=== PATIENT | male | born 1970 | race Hispanic/Latino ===

== ENCOUNTER 2018-08-06 06:37 | Emergency (ER) | payer OTHER ==
[2018-08-06 06:49] VITALS: BMI 29.6
[2018-08-06] MEDS ORDERED: Sodium Chloride 0.9% 1,000 ML IV STA (07:33)
[2018-08-06] MEDS ORDERED: Sucralfate 1 gm/10 ml Oral Susp UD PO ONE (07:34)
[2018-08-06] MEDS ORDERED: Sucralfate 1 gm/10 ml Oral Susp UD ONE (07:53)
--- NOTE | 2018-08-06 08:21 | ED PDOC ---
HPI: Abdomen Time Seen by Provider: 08/06/18 07:07 Chief Complaint (Nursing): Abdominal Pain Chief Complaint (Provider): Abdominal Pain History Per: Patient History/Exam Limitations: no limitations Onset/Duration Of Symptoms: Days (x1) Outside of [place] travel?: No Current Symptoms Are (Timing): Still Present Pain Scale Rating Of: 6 Quality Of Discomfort: "Pain" Associated Symptoms: Vomiting (x 8 episodes per day ). denies: Fever, Diarrhea Additional Complaint(s): 47 y/o male with no significant PMHx presents to the ED for evaluation of abdominal pain, onset 11pm last night. Patient states pain is associated with 8 episodes of vomiting. Patient reports pain is located in the epigastric region radiating to the back. Patient describes pain as a 6/10. Patient states he was at a friends home where he ate a heavy meal and drank a small amount of alcohol when symptoms began. Patient reports no one else had gotten sick. Prior to arrival, patient admits to taking Lorazepam from his . Otherwise, patient denies diarrhea, fever and chills. PMD: Dr. Griselda Lee Past Medical History Reviewed: Historical Data, Nursing Documentation, Vital Signs Vital Signs: Last Vital Signs Temp 97.3 F L 08/06/18 06:56 Pulse 51 L 08/06/18 06:56 Resp 18 08/06/18 06:56 BP 132/85 08/06/18 06:56 Pulse Ox 98 08/06/18 06:56 - Medical History PMH: No Chronic Diseases - Surgical History Surgical History: No Surg Hx - Family History Family History: States: Unknown Family Hx - Living Arrangements Living Arrangements: With Family - Social History Current smoker - smoking cessation education provided: No - Home Medications Home Medications: Ambulatory Orders Medication Instructions Recorded Famotidine [Pepcid] 20 mg PO BID #28 tab 08/06/18 Ondansetron [Zofran] 4 mg PO Q8H #9 tab 08/06/18 - Allergies Allergies/Adverse Reactions: Allergies Allergy/AdvReac Type Severity Reaction Status Date / Time No Known Allergies Allergy Verified 08/06/18 06:49 Review of Systems ROS Statement: Except As Marked, All Systems Reviewed And Found Negative Constitutional: Negative for: Fever, Chills Gastrointestinal: Positive for: Vomiting, Abdominal Pain. Negative for: Diarrhea Musculoskeletal: Positive for: Back Pain Physical Exam - Reviewed Nursing Documentation Reviewed: Yes Vital Signs Reviewed: Yes - Physical Exam Appears: Positive for: No Acute Distress Head Exam: Positive for: ATRAUMATIC, NORMAL INSPECTION, NORMOCEPHALIC Skin: Positive for: Normal Color, Warm, Dry Eye Exam: Positive for: EOMI, PERRL, Other (anicteric) ENT: Positive for: Normal ENT Inspection, Other (Moist Mucous Membranes) Neck: Positive for: Normal, Painless ROM, Supple Cardiovascular/Chest: Positive for: Regular Rate, Rhythm. Negative for: Murmur Respiratory: Positive for: Normal Breath Sounds. Negative for: Respiratory Distress Gastrointestinal/Abdominal: Positive for: Bowel Sounds, Soft, Tenderness (epigastric tenderness) Neurologic/Psych: Positive for: Alert, Oriented (x3) - Laboratory Results Result Diagrams: 08/06/18 08:20 08/06/18 08:20 - ECG O2 Sat by Pulse Oximetry: 98 (RA) Pulse Ox Interpretation: Normal - Progress Re-evaluation Time: 09:10 Condition: Re-examined, Improved Medical Decision Making Medical Decision Making: Time: 7:33 Plan: -EKG -CMP -Lipase Stat -ED Urine Dipstick -CBC w/ differential -Carafate Oral Susp -sodium Chloride IV 999mls/hr -Pepcid 20mg IVP -Zofran 4mg IVP Scribe Attestation: Documented by Bekah Godfrey, acting as a scribe for Dr. Yuki Rodriguez Provider Scribe Attestation: All medical record entries made by the Scribe were at my direction and personally dictated by me. I have reviewed the chart and agree that the record accurately reflects my personal performance of the history, physical exam, medical decision making, and the department course for this patient. I have also personally directed, reviewed, and agree with the discharge instructions and disposition. Disposition - Clinical Impression Clinical Impression: Gastritis - Patient ED Disposition Is Patient to be Admitted: No Doctor Will See Patient In The: Office Counseled Patient/Family Regarding: Diagnosis, Need For Followup, Rx Given - Disposition Disposition: Routine/Home Disposition Time: 09:10 Condition: IMPROVED Prescriptions: Famotidine [Pepcid] 20 mg PO BID #28 tab Ondansetron [Zofran] 4 mg PO Q8H #9 tab Instructions: Gastritis Forms: [facility] (American) - POA Present On Arrival: None
[2018-08-06 08:33] LABS: BASO % 0.2 % (0.0-2.0); EOS % 0.1 % (0.0-4.0); HEMOGLOBIN 15.6 g/dL (12.0-18.0); LYMPH # 0.6 K/uL (1.0-4.3); LYMPH % 8.7 % (20.0-40.0); MEAN CELL VOLUME 91.7 fl (80.0-94.0); MEAN CORPUSCULAR HEMOGLOBIN 30.4 pg (27.0-31.0); MEAN CORPUSCULAR HGB CONC 33.1 g/dL (33.0-37.0); MEAN PLATELET VOLUME 7.8 fl (7.2-11.7); MONO # 0.3 K/uL (0.0-0.8); MONO % 3.8 % (0.0-10.0); NEUT # 6.1 K/uL (1.8-7.0); NEUT % 87.2 % (50.0-75.0); NRBC % 0.1 % (0.0-0.0); PLATELET COUNT 165 K/uL (130-400); RBC 5.13 Mil/uL (4.40-5.90); RED CELL DISTRIBUTION WIDTH 13.9 % (11.5-14.5)
[2018-08-06 08:43] LABS: ALB/GLOB RATIO 1.4 (1.0-2.1); ALBUMIN 4.2 g/dL (3.5-5.0); ALT/SGPT 75 U/L (21-72); AST/SGOT 42 U/L (17-59); BLOOD UREA NITROGEN 17 mg/dl (9-20); GFR NON-AFRICAN AMERICAN > 60; LIPASE 115 U/L (23-300)
[2018-08-06 10:02] LABS: LYMPHOCYTE 10 % (20-50); MONOCYTE 4 % (0-10); NEUTROPHIL 86 % (42-75); TOTAL CELLS COUNTED 100
[2018-08-06 10:03] LABS: PLATELET ESTIMATE NORMAL (NORMAL)
[2018-08-06 10:05] VITALS: BP 126/82; PULSE 66; RESP 17; TEMP 98.1; O2SAT 100
--- NOTE | 2018-08-06 18:55 | CARD ---
APPROVED REPORT Date of service: 08/06/2018 EKG Measurement Heart [id number] <Conclusion> Sinus bradycardia Otherwise normal ECG
== END 2018-08-06 10:04 | disposition home or self-care (01) ==
LOC: H.ER 06:37
DX: K29.70 Gastritis, unspecified, without bleeding (principal)
CPT/HCPCS: 80053; 83690; 85025; 93005; 96361; 96374; 96375; 99283; J2405; J7030

== ENCOUNTER 2018-12-10 00:33 | Emergency (ER) | payer OTHER ==
[2018-12-10 00:33] VITALS: BMI 29.6
[2018-12-10 00:50] VITALS: RESP 18
[2018-12-10] MEDS ORDERED: Alum-Mag Hydrox-Simethicone Susp (30 mL) PO STA (01:07)
[2018-12-10] MEDS ORDERED: Sodium Chloride 0.9% 1,000 ML IV STA (01:13)
[2018-12-10] MEDS ORDERED: Alum-Mag Hydrox-Simethicone Susp (30 mL) ONE (01:19)
[2018-12-10 01:38] LABS: BASO % 0.3 % (0.0-2.0); EOS # 0.1 K/uL (0.0-0.7); EOS % 1.5 % (0.0-4.0); HEMOGLOBIN 15.9 g/dL (12.0-18.0); LYMPH # 1.4 K/uL (1.0-4.3); LYMPH % 27.5 % (20.0-40.0); MEAN CELL VOLUME 91.2 fl (80.0-94.0); MEAN CORPUSCULAR HEMOGLOBIN 30.6 pg (27.0-31.0); MEAN CORPUSCULAR HGB CONC 33.6 g/dL (33.0-37.0); MEAN PLATELET VOLUME 7.8 fl (7.2-11.7); MONO # 0.5 K/uL (0.0-0.8); MONO % 10.2 % (0.0-10.0); NEUT % 60.5 % (50.0-75.0); NRBC % 0.1 % (0.0-0.0); RBC 5.2 Mil/uL (4.40-5.90); RED CELL DISTRIBUTION WIDTH 13.4 % (11.5-14.5)
[2018-12-10 02:05] LABS: ALB/GLOB RATIO 1.6 (1.0-2.1); ALBUMIN 4.4 g/dL (3.5-5.0); ALT/SGPT 57 U/L (21-72); AST/SGOT 31 U/L (17-59); BLOOD UREA NITROGEN 20 mg/dl (9-20); CALCIUM 9.1 mg/dL (8.4-10.2); GFR NON-AFRICAN AMERICAN > 60; LIPASE 186 U/L (23-300)
[2018-12-10] MEDS ORDERED: Sodium Chloride 0.9% 50 ML IV ONE (02:31)
[2018-12-10] MEDS ORDERED: Iohexol 300 100 ML IJ ONE (02:31)
--- NOTE | 2018-12-10 02:49 | ED PDOC ---
HPI: Abdomen Time Seen by Provider: 12/10/18 00:54 Chief Complaint (Nursing): GI Problem Chief Complaint (Provider): GI Problem History Per: Patient History/Exam Limitations: no limitations Onset/Duration Of Symptoms: Hrs Current Symptoms Are (Timing): Still Present Location Of Pain/Discomfort: Epigastric Additional Complaint(s): 47 y/o male with a PMHx of HTN presents to the ED for evaluation of vomiting associated with "heartburn" and epigastric pain since 10 PM last night. Patient reports of having several episodes of non-bloody, non-bilious vomiting over the past three hours. Patient reports of eating a bruschetta sandwich at around 8 PM for dinner last night and drinking a couple glasses of sparking water and one glass of red wine. Patient notes heartburn and epigastric pain began at approximately 10 o'clock last night. Patient states epigastric pain is constant. Patient notes of having developed similar problems last year when he was told he had GERD. Otherwise, patient denies diarrhea. PMD: Sally Reyes Past Medical History Reviewed: Historical Data, Nursing Documentation, Vital Signs Vital Signs: Last Vital Signs Temp 98.4 F 12/10/18 00:47 Pulse 50 L 12/10/18 00:47 Resp 18 12/10/18 00:47 BP 147/89 12/10/18 01:09 Pulse Ox 98 12/10/18 00:47 - Medical History PMH: GERD, HTN Denies: Chronic Kidney Disease - Surgical History Surgical History: No Surg Hx - Family History Family History: States: Unknown Family Hx - Home Medications Home Medications: Ambulatory Orders Medication Instructions Recorded Famotidine [Pepcid] 20 mg PO BID #28 tab 08/06/18 Ondansetron [Zofran] 4 mg PO Q8H #9 tab 08/06/18 Ondansetron ODT [Zofran ODT] 4 mg PO Q8 PRN #12 odt 12/10/18 Pantoprazole Sodium [Protonix] 20 mg PO DAILY #30 ect 12/10/18 Sucralfate [Carafate] 1 gm PO TID #30 dose 12/10/18 - Allergies Allergies/Adverse Reactions: Allergies Allergy/AdvReac Type Severity Reaction Status Date / Time No Known Allergies Allergy Verified 12/10/18 00:50 Review of Systems ROS Statement: Except As Marked, All Systems Reviewed And Found Negative Cardiovascular: Positive for: Other (HEART BURN) Gastrointestinal: Positive for: Vomiting, Abdominal Pain. Negative for: Diarrhea Physical Exam - Reviewed Nursing Documentation Reviewed: Yes Vital Signs Reviewed: Yes - Physical Exam Appears: Positive for: Uncomfortable Head Exam: Positive for: ATRAUMATIC, NORMOCEPHALIC Skin: Positive for: Normal Color, Warm, Dry Eye Exam: Positive for: Normal appearance, EOMI, PERRL Neck: Positive for: Normal, Painless ROM, Supple Cardiovascular/Chest: Positive for: Regular Rate, Rhythm. Negative for: Murmur Respiratory: Positive for: Normal Breath Sounds. Negative for: Respiratory Distress Gastrointestinal/Abdominal: Positive for: Tenderness (MILD EPIGASTRIC TENDERNESS) Extremity: Positive for: Normal ROM. Negative for: Deformity Neurological/Psych: Positive for: Awake, Alert, Oriented (x3). Negative for: Motor/Sensory Deficits - Laboratory Results Result Diagrams: 12/10/18 01:30 12/10/18 01:30 Lab Results: Troponin I < 0.0120 ng/mL (0.00-0.120) 12/10/18 01:30 Total Bilirubin 0.5 mg/dl (0.2-1.3) 12/10/18 01:30 AST 31 U/L (17-59) 12/10/18 01:30 ALT 57 U/L (21-72) 12/10/18 01:30 Alkaline Phosphatase 92 U/L (38-126) 12/10/18 01:30 Total Protein 7.2 G/DL (6.3-8.2) 12/10/18 01:30 Albumin 4.4 g/dL (3.5-5.0) 12/10/18 01:30 Globulin 2.7 gm/dL (2.2-3.9) 12/10/18 01:30 Albumin/Globulin Ratio 1.6 (1.0-2.1) 12/10/18 01:30 Lipase 186 U/L (23-300) 12/10/18 01:30 - ECG ECG Rhythm: Positive for: Normal QRS, Sinus Bradycardia. Negative for: ST/T Changes Rate: 51 O2 Sat by Pulse Oximetry: 98 (RA) Pulse Ox Interpretation: Normal - Progress Re-evaluation Time: 05:03 Condition: Re-examined, Improved Medical Decision Making Medical Decision Making: Time: 0113 Impression: Vomiting and epigastric pain Differentials include but not limited to acute pancreatitis, small bowel obstruction and peptic ulcer disease Rule out ACS Plan: -- CT Abd/Pelvis IV Contrast -- EKG -- CMP -- Lipase -- Troponin I -- CBC with Differentials -- Maalox Plus 30 ml PO -- Sodium Chloride IV 1000 mls/hr -- Pepcid 20 mg IVP -- Toradol 30 mg IVP -- Zofran Inj 4 mg IVP -- Zofran Inj 4 mg IV -- IV Insertion CT of the abdomen and pelvis with contrast Clinical statement: Pain, vomiting. Technique: Multiple axial CT images were obtained from the base of the lungs through the floor of the pelvis utilizing 5 mm axial slices after administration of nonionic intravenous contrast. Coronal and sagittal reconstructions were also obtained. Comparison: None. Findings: Chest: The visualized lung bases are clear. Abdomen: The spleen, pancreas, kidneys, gallbladder, and adrenal glands are unremarkable. There is diffuse low attenuation throughout the hepatic parenchyma. No focal hepatic masses are seen. The hepatic and portal veins are patent. There is no evidence of biliary ductal dilatation. The aorta is within normal limits. There is no evidence of abdominal lymphadenopathy or ascites. Pelvis: The bowel is unremarkable, with no obstructive or inflammatory changes. The appendix is normal. The urinary bladder is within normal limits. The other pelvic structures appear grossly intact. There is no evidence of pelvic lymphadenopathy or ascites. Bones: There are no suspicious osseous abnormalities seen. Impression: 1. No obstructive or inflammatory bowel changes. 2. Fatty infiltration of the liver. 3. No evidence of hydronephrosis. The kidneys and renal collecting systems are grossly unremarkable. Electronically signed on Dec 10, 2018 3:22:33 AM EDT by: Clifford Leong M.D., M.B.A., Certified By [employer] Trained MRI and CT Specialist Scribe Attestation: Documented by Deborah Li, acting as a scribe forGtaisham Orbelyan, MD. Provider Scribe Attestation: All medical record entries made by the Scribe were at my direction and personally dictated by me. I have reviewed the chart and agree that the record accurately reflects my personal performance of the history, physical exam, medical decision making, and the department course for this patient. I have also personally directed, reviewed, and agree with the discharge instructions and disposition. Disposition - Clinical Impression Clinical Impression: Abdominal pain - Patient ED Disposition Is Patient to be Admitted: No Doctor Will See Patient In The: Office Counseled Patient/Family Regarding: Studies Performed, Diagnosis, Need For Followup - Disposition Referrals: Tesfaye Ragsdale MD, PhD [Staff Provider] - Disposition: Routine/Home Disposition Time: 05:04 Condition: GOOD Additional Instructions: CALLIE PAZ, thank you for letting us take care of you today. Your provider was Albert Alvarado MD and you were treated for POSS HEARTBURN. The emergency medical care you received today was directed at your acute symptoms. If you were prescribed any medication, please fill it and take as directed. It may take several days for your symptoms to resolve. Return to the Emergency Department if your symptoms worsen, do not improve, or if you have any other problems. Please contact your doctor or call one of the physicians/clinics you have been referred to that are listed on the Patient Visit Information form that is included in your discharge packet. Bring any paperwork you were given at discharge with you along with any medications you are taking to your follow up visit. Our treatment cannot replace ongoing medical care by a primary care provider outside of the emergency department. Thank you for allowing the [facility] team to be part of your care today. If you had an X-Ray or CT scan: A Radiologist will review the ED reading if any change in treatment is needed we will contact you. If you had a blood, urine, or wound culture: It will take several days for the results, if any change in treatment is needed we will contact you. Prescriptions: Ondansetron ODT [Zofran ODT] 4 mg PO Q8 PRN #12 odt PRN Reason: Nausea/Vomiting Pantoprazole Sodium [Protonix] 20 mg PO DAILY #30 ect Sucralfate [Carafate] 1 gm PO TID #30 dose Instructions: Stomach Ache and Stomach Upset
[2018-12-10 05:33] VITALS: BP 136/85; TEMP 98.6
[2018-12-10 05:41] VITALS: PULSE 51; O2SAT 98
--- NOTE | 2018-12-10 08:59 | CARD ---
APPROVED REPORT Date of service: 12/10/2018 EKG Measurement Heart [id number] <Conclusion> Sinus bradycardia Otherwise normal ECG
--- NOTE | 2018-12-10 10:24 | CT ---
Date of service: 12/10/2018 PROCEDURE: CT Abdomen and Pelvis with contrast HISTORY: abdominal pain voimiting COMPARISON: None. TECHNIQUE: Contrast dose: 95 mL Radiation dose: Total exam DLP = 980.24 mGy-cm. This CT exam was performed using one or more of the following dose reduction techniques: Automated exposure control, adjustment of the mA and/or kV according to patient size, and/or use of iterative reconstruction technique. FINDINGS: LOWER THORAX: Evaluation of the lung bases reveal some minor dependent atelectasis and interstitial change without infiltrate or effusion. Visualized distal esophagus shows evidence of small hiatal hernia. Visualized stomach is decompressed limiting evaluation although no wall thickening is clearly seen. Duodenum is unremarkable. LIVER: Liver is fatty infiltrated without evidence of focal mass or intrahepatic ductal dilatation. Liver is enlarged. GALLBLADDER AND BILE DUCTS: Unremarkable. PANCREAS: Unremarkable. No gross lesion or ductal dilatation. SPLEEN: Unremarkable. ADRENALS: Unremarkable. No mass. KIDNEYS AND URETERS: There is a small left renal cyst identified. No hydronephrosis or calculus is seen. Kidneys are otherwise normal in size. No perinephric changes are seen. Ureters are normal in size. VASCULATURE: Unremarkable. No aortic aneurysm. No aortic atherosclerotic calcification or mural plaque present. BOWEL: Unremarkable. No obstruction. No gross mural thickening. APPENDIX: No right lower quadrant inflammatory process is seen. PERITONEUM: No ascites is seen. No free intraperitoneal air is noted. No hernia is identified. LYMPH NODES: Unremarkable. No enlarged lymph nodes. BLADDER: Unremarkable. REPRODUCTIVE: Unremarkable. BONES: There is a probable hemangioma identified in the L4 vertebral body. No compression fractures or lytic process is noted. Mild degenerative disc disease is seen in the spine. OTHER FINDINGS: No mesenteric thickening or adenopathy is seen. IVC is normal in size. IMPRESSION: No appreciable acute inflammatory process in the abdomen or pelvis. No evidence of colitis or bowel obstruction. Hepatomegaly and fatty infiltration of the liver.
== END 2018-12-10 05:31 | disposition home or self-care (01) ==
LOC: H.ER 00:33
DX: R10.13 Epigastric pain (principal); K21.9 Gastro-esophageal reflux disease without esophagitis; I10 Essential (primary) hypertension
CPT/HCPCS: 74177; 80053; 83690; 84484; 85025; 93005; 96361; 96374; 96375; 96376; 99284; J1885; J2405; J7030; Q9967